=== PATIENT | female | born 1935 | race Caucasian/White ===

== ENCOUNTER 2017-09-01 07:32 | Inpatient (IN) | payer OTHER, MEDICARE ==
[~2017-09-01] VITALS: Ht 154.9 cm; Wt 64.4 kg
--- NOTE | ~2017-09-01 | D ---
[facility] [place] [address] DISCHARGE SUMMARY Name: CULLENEBEN Room #: 204-P ADM IN M.R.#: [id number] Admission: 09/01/17 Attend Phys: Jonny Gonsales DO Discharge: Date of : 33 Report #: [id number] THIS REPORT FOR: //name// CC: [facility] Gorge Craft MD [facility] Jonny Akhtar MD DATE OF SERVICE: 09/06/2017 This 82-year-old female got up early in the morning and lost her balance and fell, remaining on the floor for 5 hours until her roommate woke up. She was brought to the Emergency Room and found to have an intertrochanteric fracture of her right hip. There was no loss of consciousness. 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 PHYSICAL EXAMINATION: GENERAL: Initial physical revealed an uncomfortable white female who could not move her right leg, which was externally rotated. VITAL SIGNS: Initially stable. HEAD AND NECK: Negative. LUNGS: Clear. HEART: Revealed controlled irregular rate. ABDOMEN: Soft and nontender. EXTREMITIES: Legs had no edema. NEUROLOGIC: Revealed severe sensory deficits in her feet. Her usual gait is wide based and unsteady and she has been reluctant to use her walker at home, she admitted. Urinalysis was negative. White count elevated at 18,000, hemoglobin 14.5. Sodium 134, potassium 4.8, CO2 of 24, BUN 34, creatinine 1.4, blood sugar 83, and calcium 9.5. Liver enzymes normal. Serum albumin normal. Cardiac enzymes normal. X-ray showed an acute comminuted right intertrochanteric femur fracture with mild displacement and varus angulation. Chest x-ray was negative. EKG showed chronic atrial fibrillation and minimal ST-T depression in the inferior leads. The patient was admitted, seen in consult by Dr. Akhtar of Orthopedics and Dr. Daniel of Cardiology. She was prepared for surgery and Dr. Akhtar performed on 09/02/2017, right hip reduction and internal fixation. He kept the patient nonweightbearing after surgery. She did develop more confusion and delirium and had to be reoriented frequently, but did not require any medications. She was able to be up in the chair. She developed worsening [address] [address] DISCHARGE SUMMARY Name: EBEN BERMAN Brit Room #: 204-P [facility] IN .R.#: [id number] Admission: 09/01/17 Attend Phys: Jonny Gonsales DO Discharge: Date of : 34 Report #: [id number] itching and we decided to stop most of her nonessential meds; however, the itching persisted. Her final hemoglobin was 9.7 grams, white count 8000. Sodium 137, potassium 4.4, CO2 24, BUN 16, creatinine 1.3, estimated GFR 39, blood sugar 72, calcium 8.1, and albumin normal at 3.9. On 09/06/2017, her incision was healing well. She was able to sit up in the chair. She had fairly good appetite, had not moved her bowels, but had decent bowel sounds and she was stable for discharge to the [facility] on a cardiac diet, Lovenox 30 mg subcutaneous daily, Benadryl 25 mg q.6h p.r.n. itching, gabapentin 200 mg t.i.d., bisacodyl suppository p.r.n. constipation, docusate 100 mg b.i.d., MiraLax 1 capful daily, Senna-S 1 at bedtime p.r.n. constipation, metoprolol succinate 50 mg b.i.d. and at bedtime, multivitamin 1 daily, probiotic one daily p.r.n. constipation, nitroglycerin sublingual p.r.n. chest pain, alprazolam 0.25 mg q.8h p.r.n. anxiety, aspirin 325 mg daily, tramadol 50 mg q.6h p.r.n. pain and fluocinonide cream daily to her itchy skin. We discontinued nifedipine, losartan, potassium, diclofenac gel and hydrochlorothiazide. She will see Dr. Akhtar in 1 week in his office. FINAL DIAGNOSES: 1. Acute comminuted right intertrochanteric fracture, status post open reduction and internal fixation. 2. Acute delirium. 3. Chronic kidney disease stage 3. 4. Hypertension. 5. Coronary artery disease, status post stenting. 6. Chronic atrial fibrillation. 7. Peripheral neuropathy. 8. Essential tremor. 9. Pruritus. 10. Dry skin. 11. Blood loss anemia secondary to surgery. By: 0800 [id number] Jonny Gonsales, DO /nt
--- NOTE | ~2017-09-01 | EKG ---
[address] [address] ELECTROCARDIOGRAM REPORT Name: EBEN BERMAN Room #: 412-P ADM IN M.R.#: [id number] Admission: 09/01/17 Attend Phys: Jonny Gonsales DO Discharge: Date of : 34 Report #: [id number] THIS REPORT FOR: //name// [facility] ED Test Date: 2017-09-01 Test Time: 08:42:21 Pat Name: EBEN BERMAN Department: Room: 412 Gender: F Health Researcher: TAMERA : 1935 Requested By: Nicole Castillo Order Number: [id number] MD: Brady Reynolds Measurements Intervals [place] Rate: 109 P: WI: QRS: 86 QRSD: 108 T: -29 QT: 368 QTc: 496 Interpretive Statements Atrial fibrillation Borderline right axis deviation Low voltage, extremity leads Minimal ST depression, inferior leads Compared to ECG 11/01/2016 21:13:31 ST (T wave) deviation now present T-wave abnormality no longer present Electronically Signed On 09-01-2017 16:05:35 [employer] by Brady Reynolds [email or web address] <ELECTRONICALLY SIGNED> By: Brady Reynolds MD 09/01/17 1605 0842 0842 Brady Reynolds MD /EPI
--- NOTE | ~2017-09-01 | HC ---
[facility] [place] [address] CONSULTATION Name: EBEN BERMAN Room #: 204-P [facility] IN M.R.#: [id number] Admission: 09/01/17 Attend Phys: Jonny Gonsales, Discharge: 09/06/17 Date of : 34 Report #: [id number] THIS REPORT FOR: //name// CC: Jonny Gonsales CHIEF COMPLAINT: Right hip pain. HISTORY OF PRESENT ILLNESS: The patient is an 82-year-old lady who fell backwards when returning from the bathroom and injured her right hip. X-rays demonstrated a right hip intertrochanteric hip fracture. She was admitted for definitive treatment. She does have a history of peripheral neuropathy and typically has been instructed to use a cane or walker, but around the house she often times uses furniture for balance. PAST MEDICAL HISTORY: Significant for carotid artery disease with a history of carotid endarterectomy in 2015. She has coronary artery disease with 2 coronary stents. She has peripheral vascular disease, sick sinus syndrome with a pacemaker, has renal artery stents, venous insufficiency, mild organic brain syndrome, degenerative disk disease, low back, hypertension, mitral regurgitation, allergic rhinitis, iron deficiency anemia. MEDICATIONS: Include gabapentin, aspirin, metoprolol, Klor-Con, hydrochlorothiazide, nifedipine, and losartan. ALLERGIES: AUGMENTIN, LISINOPRIL AND STATINS. PHYSICAL EXAMINATION: Her right lower extremity is shortened and externally rotated. Skin is intact overlying the hip with a little bit of ecchymosis, unable to palpate the pedal pulse. She is able to plantar flex and dorsiflex the foot actively. No significant edema. Diminished sensation in the right foot. DIAGNOSTIC DATA: X-rays demonstrated the above noted intertrochanteric hip fracture. IMPRESSION: Right hip intertrochanteric hip fracture. PLAN: Right hip reduction and internal fixation. She is to have her pacemaker checked just prior to surgery. Cardiology has evaluated her. <ELECTRONICALLY SIGNED> By: Nikolai Akhtar MD 09/06/17 2304 0746 18 Nikolai Akhtar MD /nt
--- NOTE | ~2017-09-01 | H ---
[facility] [address] HISTORY AND PHYSICAL Name: EBEN BERMAN Room #: 412-P ADM IN M.R.#: [id number] Admission: 09/01/17 Attend Phys: Jonny Gonsales DO Discharge: Date of : 34 Report #: [id number] THIS REPORT FOR: //name// CC: Jonny Gonsales DATE OF SERVICE: 09/01/2017 HISTORY OF PRESENT ILLNESS: This 82-year-old white female got up this morning at 1:30 from her couch where she was sleeping, and went to the bathroom, and upon return she fell backwards hitting the back of her head and breaking her right hip. She lay on the floor for over 5 hours because her roommate who was hard of hearing did not hear her screams. She denied loss of consciousness or syncope. The patient has fallen in the past, but none recently. She has peripheral neuropathy and is supposed to use a cane or a walker, but she says she uses furniture at home for balance. PAST MEDICAL HISTORY: Last admission was in October of this year for dehydration from pseudomonas UTI. She has a long complex history including carotid artery disease with a left carotid endarterectomy in 2014, coronary artery disease with 2 coronary stents, peripheral arterial vascular disease, sick sinus syndrome with pacemaker, hysterectomy, renal artery stents, degenerative arthritis, peripheral venous insufficiency, mild organic brain syndrome, lumbar degenerative disk disease, appendectomy, right breast biopsy, bilateral cataract resections, hypertension, mitral regurgitation, allergic rhinitis, iron deficiency anemia, one hospitalization for anemia secondary to severe nosebleed, cervical and lumbar radiculopathies and chronic kidney disease stage 3. MEDICATIONS ON ADMISSION: Gabapentin 100 mg 2 tablets b.i.d., aspirin 5 grains daily, metoprolol succinate ER 50 mg b.i.d., Klor-Con 10 mEq daily, HCTZ 12.5 mg daily, nifedipine ER 30 mg b.i.d. and losartan 25 mg daily. ALLERGIES: AUGMENTIN, LISINOPRIL and STATINS. REVIEW OF SYSTEMS: She has a lady that lives with her. She is no longer able to drive. She has been concerned about memory deficits. She gets sudden jolts of pain along the left side of her head, which are more irritating and painful. Denies recent fever, chills, cough or any specific infection. She has had a bleeding ulcer in the past. PHYSICAL EXAMINATION: GENERAL: A pleasant white female, who recognized me immediately. VITAL SIGNS: Blood pressure 111/62, pulse 104, respirations 20, temperature afebrile. HEENT: She had no visible or palpable sign of trauma. Ears, nose and Throat: No definite lesions. Eyes: No icterus. [facility] [address] [place] [address] HISTORY AND PHYSICAL Name: EBEN BERMAN Room #: 412-P [facility] IN M.R.#: [id number] Admission: 09/01/17 Attend Phys: Jonny Gonsales DO Discharge: Date of : 34 Report #: [id number] NECK: Supple without definite bruits. LUNGS: Clear. Cough is dry. HEART: Irregular, but rate is controlled. ABDOMEN: Soft, without mass or tenderness. EXTREMITIES: Reveal no edema. Her right leg is laterally externally rotated and immobile. Left leg and both arms move well. No peripheral edema. She can move her right foot easily. NEUROLOGIC: She is alert and well oriented with severe sensory deficit in her feet, missing all the light touches to her toes. Her usual gait is wide based and unsteady. She admits she has been reluctant to use her cane or walker. Urinalysis shows 2+ blood, but no red cells or white cells. White count is elevated at 18,000, hemoglobin 14.5, INR 1.0. Sodium 134, potassium 4.8, CO2 24, BUN 34, creatinine 1.4, estimated GFR 36. Blood sugar 83, calcium 9.5. Liver enzymes normal. Serum albumin normal. Cardiac enzymes negative. X-ray of the right hip shows acute comminuted right intertrochanteric femur fracture with mild displacement and varus angulation. Chest x-ray shows no acute disease with stable cardiomegaly. EKG shows atrial fibrillation and minimal ST depression in the inferior leads. IMPRESSION: 1. Acute comminuted intertrochanteric fracture, right hip secondary to fall. 2. Severe peripheral neuropathy, at high risk for falls. 3. Chronic atrial fibrillation. 4. Coronary artery disease. 5. Carotid artery disease. 6. Mitral regurgitation. 7. Sick sinus syndrome, status post pacemaker. 8. Chronic kidney disease stage 3. 9. Cervical and lumbar radiculopathies. 10. Essential tremor. 11. History of chronic kidney disease stage 3. PLAN: Medically seems stable for hip fracture surgery, which is clinically needed for her to walk again easily. Surgery to decide which procedure is best indicated and Cardiology to clear for surgery. We will order one of her blood pressure pill since her blood pressure is low normal at present. She had taken aspirin earlier today, but is on no other anticoagulant. PROGNOSIS: Guarded. <ELECTRONICALLY SIGNED> By: Jonny Gonsales, 09/02/17 1150 1040 1112 Jonny Gonsales, DO /nt
--- NOTE | ~2017-09-01 | O ---
[facility] [place] [address] OPERATIVE REPORT Name: EBEN BERMAN Room #: 204-P [facility] IN M.R.#: [id number] Admission: 09/01/17 Attend Phys: Jonny Gonsales DO Discharge: 09/06/17 Date of : 33 Report #: [id number] THIS REPORT FOR: //name// CC: Jonny Gonsales PREOPERATIVE DIAGNOSIS: Right hip subtrochanteric hip fracture. POSTOPERATIVE DIAGNOSIS: Right hip subtrochanteric hip fracture. PROCEDURE: Right hip reduction and internal fixation with intramedullary device. SURGEON: Nikolai Akhtar MD LITHARGE SUPERVISOR: Janee Vang PA-C ANESTHETIC: General. INDICATIONS: See hospital consultation. DESCRIPTION OF PROCEDURE: After adequate general anesthesia had been obtained, the patient was transferred to the fracture table. The hip was prepped and draped in the usual meticulous sterile fashion. We made a small incision proximal to the trochanter, subQ divided sharply, IT band was divided. The starter roll was placed at the tip of the trochanter and a guide pin placed down the canal. We reamed the proximal portion of the canal to accommodate the width of the nail. We then, because it was a subtrochanteric fracture, used the longer trochanteric fixation nail, the 270 mm nail, though we used a 10 mm diameter. This was advanced into the canal to appropriate level. A second small stab incision was made laterally on the thigh. The trocar was placed adjacent to the femur. The guide pin was placed up into the central portion of the femoral head and checked in 2 planes and found to be in good position. We then reamed the femur and then placed a 95 mm helical blade up into the femoral head. We then placed the distal locking screw through a small stab incision, 34 mm length. The entire construct was checked in 2 planes and found to be in good position. The wound was irrigated copiously. The fascia was then reapproximated with 2-0 Vicryl, subQ closed with 2-0 Monocryl, skin closed with fan. Sterile compressive dressing applied. <ELECTRONICALLY SIGNED> By: Nikolai Akhtar MD 09/06/17 2304 0953 1220 Nikolai Akhtar MD /nt
[~2017-09-01 07:32] MED LIST: ADULT LOW DOSE81 MG PO; AMITRIPTYLINE H25 M3 PO; AMOXICILLIN875 MG PO; ASPIR 8181 MG PO; ASPIR-TRIN325 MG PO; BYSTOLIC10 MG PO; CIPRO250 M1 PO; CIPROFLOXACIN250 M2 PO; COUMADIN 2 MG TA2 M1 PO; COUMADIN 3 MG TA3 MG; COUMADIN 4 MG TA4 M1; COZAAR 25 MG TA25 M1 PO; FISH OIL 1,001000 M2 PO; GABAPENTIN 100100 MG PO; HYDROCHLOROTH12.5 M1 PO; HYDROCHLOROTHIA25 M1 PO; HYDROCODONE-AP1 EAC6 PO; IMDUR 60 MG TAB60 M1 PO; IMDUR30 MG PO; IRON325 PO; KEFLEX500 MG PO; KLOR-CON 1010 MEQ PO; LANOXIN 0.250.25 M1 PO; LOPRESSOR50 PO; METOPROLOL SUCC50 MG PO; MULTIVITAMINS PO; NEURONTIN100 MG PO; NITROGLYCERIN0.4 MG SUBLING; NORCO 10-325 T1 EACH PO; NORCO 5-325 TA1 EACH PO; PERCOCET 5-3251 EACH PO; PHILLIPS' COLO1 EACH PO; PLAVIX 75 MG TA75 M1 PO; PROCARDIA XL30 MG PO; TOPROL XL100 MG PO; TOPROL XL50 MG PO; TRAMADOL 50 MG50 MG PO; VALIUM2 MG PO; VOLTAREN GEL 1100 G2 TOP; XANAX 0.25 MG0.25 MG PO
[2017-09-01 07:33] VITALS: BP 130/98
[2017-09-01 08:36] LABS: HEMATOCRIT 44.3 % (37.0-47.0); HEMOGLOBIN 14.5 gm/dL (12.0-15.0); MCH 31.9 pg (26.0-34.0); MCHC 32.7 g/dL (28.0-37.0); MCV 97.5 fL (80.0-100.0); PLATELET COUNT 212 thou/uL (150-400); RBC 4.54 mil/uL (4.20-5.00); RDW 13.7 % (10.5-14.5); WBC 18.3 thou/uL (4.0-11.0)
[2017-09-01 08:38] LABS: MANUAL DIFF YES
[2017-09-01 08:42] LABS: CALCIUM 9.5 mg/dL (8.5-10.1); CREATININE 1.4 mg/dL (0.6-1.0)
[2017-09-01 08:43] LABS: POTASSIUM 4.8 mmol/L (3.5-5.1)
[2017-09-01 08:44] LABS: APTT 28.8 Seconds (24.5-32.8); PROTIME 9.9 Seconds (9.3-11.4)
[2017-09-01] MEDS ORDERED: HYDROCHLOROTHIA25 M2 PO (09:07)
[2017-09-01 09:08] LABS: URINE BILIRUBIN NEGATIVE (Negative); URINE BLOOD 2+ (Negative); URINE COLOR YELLOW; URINE GLUCOSE-RANDOM* NEGATIVE (Negative); URINE KETONES TRACE (Negative); URINE NITRITE NEGATIVE (Negative); URINE PROTEIN (DIPSTICK) NEGATIVE (Negative); URINE UROBILINOGEN 0.2 E.U./dl (0.2-1.0)
[2017-09-01] MEDS ORDERED: LOPRESSOR100 M1 PO (09:08)
[2017-09-01 09:50] LABS: BACTERIA 1-9 Few /HPF (None Seen); CASTS None Seen /LPF (None Seen); CRYSTALS None Seen /LPF (None Seen); SQUAMOUS 0-3 Few /LPF (0-3); URINE RBC 0-2 Rare /HPF (0-2); URINE WBC 0-5 Rare /HPF (0-5)
[2017-09-01 09:50] LABS: ALBUMIN 3.9 g/dL (3.4-5.0); DIRECT BILIRUBIN 0.2 mg/dL (<0.1-0.3); TOTAL BILIRUBIN 0.9 mg/dL (<0.1-1.0); TOTAL PROTEIN 7.1 g/dL (6.4-8.2)
[2017-09-01 09:57] LABS: ANISOCYTOSIS SLIGHT; MYELOCYTES 1 %; TOTAL CELL COUNT 100
[2017-09-01 11:12] VITALS: BP 111/62
[2017-09-01 12:37] VITALS: BP 112/61
[2017-09-01 15:35] VITALS: BP 88/47
[2017-09-01 21:22] VITALS: BP 135/55
[2017-09-02 04:42] LABS: HEMATOCRIT 37.7 % (37.0-47.0); MCH 31.6 pg (26.0-34.0); MCHC 32.6 g/dL (28.0-37.0); MCV 96.7 fL (80.0-100.0); PLATELET COUNT 193 thou/uL (150-400); RBC 3.89 mil/uL (4.20-5.00); RDW 13.6 % (10.5-14.5); WBC 11.5 thou/uL (4.0-11.0)
[2017-09-02 04:45] LABS: HEMOGLOBIN 12.3 gm/dL (12.0-15.0)
[2017-09-02 04:46] LABS: MANUAL DIFF YES
[2017-09-02 04:53] LABS: CALCIUM 8.3 mg/dL (8.5-10.1); CREATININE 1.6 mg/dL (0.6-1.0)
[2017-09-02 04:55] LABS: POTASSIUM 3.8 mmol/L (3.5-5.1)
[2017-09-02 05:11] LABS: ABSOLUTE NEUTROPHILS 6.3 thou/uL (1.4-8.2); ATYPICAL LYMPHS 5 %; TOTAL CELL COUNT 100
[2017-09-02 05:29] VITALS: BP 150/76
[2017-09-02 07:53] VITALS: BP 150/64
[2017-09-02 12:15] VITALS: BP 108/86
[2017-09-02 16:05] VITALS: BP 129/59
[2017-09-02 19:46] VITALS: BP 104/61
[2017-09-03 03:15] LABS: HEMATOCRIT 27.6 % (37.0-47.0); MCH 32.5 pg (26.0-34.0); MCHC 33.3 g/dL (28.0-37.0); MCV 97.5 fL (80.0-100.0); RBC 2.83 mil/uL (4.20-5.00); RDW 13.7 % (10.5-14.5); WBC 7.9 thou/uL (4.0-11.0)
[2017-09-03 03:16] LABS: HEMOGLOBIN 9.2 gm/dL (12.0-15.0)
[2017-09-03 03:30] LABS: CALCIUM 7.6 mg/dL (8.5-10.1); CREATININE 1.4 mg/dL (0.6-1.0); POTASSIUM 4.4 mmol/L (3.5-5.1)
[2017-09-03 04:41] VITALS: BP 132/57
[2017-09-03 07:40] VITALS: BP 128/41
[2017-09-03 11:35] VITALS: BP 106/62
[2017-09-03 15:40] VITALS: BP 85/62
[2017-09-03 19:06] VITALS: BP 102/46
[2017-09-04 03:10] LABS: HEMATOCRIT 28.3 % (37.0-47.0); HEMOGLOBIN 9.7 gm/dL (12.0-15.0); MCH 33.2 pg (26.0-34.0); MCHC 34.2 g/dL (28.0-37.0); MCV 96.9 fL (80.0-100.0); RBC 2.91 mil/uL (4.20-5.00); RDW 13.8 % (10.5-14.5); WBC 8.7 thou/uL (4.0-11.0)
[2017-09-04 03:18] LABS: CALCIUM 8.1 mg/dL (8.5-10.1); CREATININE 1.3 mg/dL (0.6-1.0); POTASSIUM 4.4 mmol/L (3.5-5.1)
[2017-09-04 03:50] VITALS: BP 97/69
[2017-09-04 07:30] VITALS: BP 135/56
[2017-09-04 11:25] VITALS: BP 116/47
[2017-09-04 15:40] VITALS: BP 99/62
[2017-09-04 19:58] VITALS: BP 110/66
[2017-09-05 03:30] VITALS: BP 104/74
[2017-09-05 11:17] VITALS: BP 123/51
[2017-09-05 15:14] VITALS: BP 114/101
[2017-09-05 20:03] VITALS: BP 110/51
[2017-09-06 04:25] VITALS: BP 125/69
[2017-09-06] MEDS ORDERED: DIPHENHIST25 M1 PO (07:44)
[2017-09-06] MEDS ORDERED: ENOXAPARIN30 MG/0.1 SUBQ (07:44)
[2017-09-06] MEDS ORDERED: GABAPENTIN 100100 MG PO (07:45)
[2017-09-06] MEDS ORDERED: SENNA8.6 MG PO (07:46)
[2017-09-06] MEDS ORDERED: COLACE 100 MG100 MG PO (07:46)
[2017-09-06] MEDS ORDERED: MIRALAX17 GM PO (07:46)
[2017-09-06] MEDS ORDERED: BISACODYL SUPP10 MG RECTAL (07:46)
[2017-09-06] MEDS ORDERED: SYNALAR120 GM (07:47)
[2017-09-06 11:42] VITALS: BP 98/61
== END 2017-09-06 13:30 | DRG 481 ==
LOC: ER 07:32 → 4N 08:32 → EROBS 08:32 → 4N 12:21 → 2N 09-02 11:59
PROVIDERS: Emergency Medicine; Internal Medicine; Orthopaedic Surgery
PROC: 0QS604Z Reposition Right Upper Femur with Internal Fixation Device, Open Approach (ICD-10-PCS; principal; 2017-09-02)
DX: S72.21XA Displaced subtrochanteric fracture of right femur, initial encounter for closed fracture (principal); I12.0 Hypertensive chronic kidney disease with stage 5 chronic kidney disease or end stage renal disease; I25.10 Atherosclerotic heart disease of native coronary artery without angina pectoris; D72.829 Elevated white blood cell count, unspecified; I73.9 Peripheral vascular disease, unspecified; I48.2 Chronic atrial fibrillation; N18.3 Chronic kidney disease, stage 3 (moderate); L29.9 Pruritus, unspecified; F09 Unspecified mental disorder due to known physiological condition; I65.29 Occlusion and stenosis of unspecified carotid artery; I34.0 Nonrheumatic mitral (valve) insufficiency; I49.5 Sick sinus syndrome; M54.16 Radiculopathy, lumbar region; M54.12 Radiculopathy, cervical region; R41.0 Disorientation, unspecified; G62.9 Polyneuropathy, unspecified; R25.1 Tremor, unspecified; D50.0 Iron deficiency anemia secondary to blood loss (chronic); Z95.0 Presence of cardiac pacemaker; Z87.891 Personal history of nicotine dependence; I25.2 Old myocardial infarction; Z95.5 Presence of coronary angioplasty implant and graft; Z98.42 Cataract extraction status, left eye; Z98.41 Cataract extraction status, right eye; Z90.710 Acquired absence of both cervix and uterus; Z88.8 Allergy status to other drugs, medicaments and biological substances; Z90.49 Acquired absence of other specified parts of digestive tract; Z79.82 Long term (current) use of aspirin; Z79.899 Other long term (current) drug therapy; W18.39XA Other fall on same level, initial encounter; Y93.89 Activity, other specified; Y92.098 Other place in other non-institutional residence as the place of occurrence of the external cause; Y99.8 Other external cause status
CPT/HCPCS: 10081; 10790; 50101; 50386; 51412; 51538; 51817; 52145; 55430; 56525; 57092; 62110; 62900; 70005

== ENCOUNTER → 2018-07-22 | Outpatient (CLI) | payer OTHER, MEDICARE ==
[~2018-07-22] MED LIST changes: +BISACODYL SUPP10 MG RECTAL; +COLACE 100 MG100 MG PO; +DIPHENHIST25 M1 PO; +ENOXAPARIN30 MG/0.1 SUBQ; +HYDROCHLOROTHIA25 M2 PO; +LOPRESSOR100 M1 PO; +MIRALAX17 GM PO; +SENNA8.6 MG PO; +SYNALAR120 GM
== END ==
LOC: NUC 10:32
DX: K80.20 Calculus of gallbladder without cholecystitis without obstruction (principal); I67.89 Other cerebrovascular disease; R10.9 Unspecified abdominal pain; R11.0 Nausea